=== PATIENT | female | born 1980 | race Two or more races ===

== ENCOUNTER 2018-11-16 03:24 | Emergency (ER) | payer OTHER ==
[~2018-11-16] VITALS: Ht 160 cm; Wt 53.7 kg
[2018-11-16 03:40] VITALS: BP 109/73
[2018-11-16] MEDS ORDERED: ALBUTEROL/IPRATROPIUM 2.5MG/0.5MG, 3 ML NPPB ONE ×2 (04:00→04:30)
[2018-11-16] MEDS ORDERED: ALBUTEROL/IPRATROPIUM 2.5MG/0.5MG, 3 ML ONE (04:40)
--- NOTE | 2018-11-16 05:23 | NUR ---
Patient/Caregiver given discharge instructions and they have confirmed that they understand the instructions. Patient ambulatory with steady gait.
== END 2018-11-16 05:25 | disposition home or self-care (01) ==
LOC: ED 05:10
DX: J20.9 Acute bronchitis, unspecified (principal)
CPT/HCPCS: 71046; 94640; 99284; J7620; 99283